=== PATIENT | female | born 1985 | race African-American/Black ===

== ENCOUNTER 2019-06-08 11:57 | Emergency (ER) | payer MEDICAID ==
[~2019-06-08] VITALS: Ht 172.7 cm; Wt 100.0 kg
[2019-06-08 12:06] VITALS: BP 0/0
[2019-06-08] MEDS ORDERED: EPINEPHRINE 0.1MG/ML (1:10,000) 10ML SYR ONE ×2 (12:16→12:20)
[2019-06-08] MEDS ORDERED: SODIUM BICARBONATE 8.4% 1 MEQ/ML 50ML SYR IV ONE (12:20)
[2019-06-08 12:29] LABS: BASOPHILS % 0.7 % (0.0-2.0); HEMOGLOBIN. 10.7 g/dL (12.0-16.0); LYMPHOCYTES % 33.8 % (20.0-50.0); MEAN CORPUSCULAR VOLUME 80.6 fL (81.0-99.0); MONOCYTES % 5.6 % (2.0-8.0); NEUTROPHILS % 59.9 % (40.0-76.0); PLATELET 254 x1000/uL (130-400); RED BLOOD CELL COUNT 4.47 mill/uL (4.2-5.4); RED CELL DISTRIBUTION WIDTH 20.4 % (11.6-14.6)
[2019-06-08 12:32] LABS: CHLORIDE 99 mEq/L (98-107)
[2019-06-08 12:36] LABS: PROTHROMBIN TIME 10.4 sec (9.6-11.0)
[2019-06-08 12:41] LABS: PARTIAL THROMBOPLASTIN TIME < 20.0 sec (23.4-31.0)
== END 2019-06-08 12:22 | disposition expired ==
LOC: EDBD 11:57 → ER 11:57
DX: I46.9 Cardiac arrest, cause unspecified (principal)
CPT/HCPCS: 31500; 36415; 80053; 82962; 84484; 85025; 85610; 85730; 92950; 99291; J3490